=== PATIENT | male | born 1945 | race Two or more races ===

== ENCOUNTER 2018-01-03 06:54 | Day surgery (SDC) | payer OTHER ==
[~2018-01-03] VITALS: Ht 172.7 cm; Wt 111.1 kg
[~2018-01-03 06:54] MED LIST: ASPI81TA27 PO; ATOR20TA50 PO; HYDR-531 PO; LORA-622 PO; LOSA25TA9 PO; TERA1CAP33 PO; TRAZ50TA2 PO
[2018-01-03] MEDS ORDERED: LIDOCAINE 2%HCL (LOCAL ANESTH.) INJ 20ML MDV ONE (07:06)
[2018-01-03] MEDS ORDERED: IODIXANOL 320MG/ML 100ML BTL IV ONE (07:06)
[2018-01-03] MEDS ORDERED: ANGIOMAX 250 MG VIAL IV ONE (08:00)
[2018-01-03] MEDS ORDERED: VERAPAMIL 2.5MG/ML INJ 2ML VIAL IV ONE (08:00)
[2018-01-03] MEDS ORDERED: MIDAZOLAM HCL 1MG/1ML-2 ML VIAL ONE (08:00)
[2018-01-03] MEDS ORDERED: fentaNYL CITRATE 100 MCG/2 ML VL ONE (08:00)
[2018-01-03] MEDS ORDERED: SODIUM CHL 0.9% 0 ML ONE (08:00)
[2018-01-03] MEDS ORDERED: IOHEXOL 350 MG/ML 100ML IJ ONE (08:13)
[2018-01-03] MEDS ORDERED: HEPARIN 1,000 UNITS/ml 1ML VIAL ONE (08:37)
== END 2018-01-03 10:40 | disposition home or self-care (01) ==
LOC: CATH 06:54
PROVIDERS: ATTEND Internal Medicine
DX: I20.0 Unstable angina (principal); I25.9 Chronic ischemic heart disease, unspecified; E66.9 Obesity, unspecified; Z68.37 Body mass index [BMI] 37.0-37.9, adult; I10 Essential (primary) hypertension; E78.5 Hyperlipidemia, unspecified; J43.9 Emphysema, unspecified
CPT/HCPCS: 93005; 93458; C1769; C1894; J1644; J2250; J3010; J7030; Q9967; 99152

== ENCOUNTER → 2018-09-11 | Day surgery (SDC) | payer OTHER ==
[~2018-09-11] VITALS: Ht 172.7 cm; Wt 106.6 kg
[~2018-09-11] MED LIST changes: -ASPI81TA27 PO; -ATOR20TA50 PO; +FLUMAZENIL 0.1 MG/ML INJ 10ML MDV IV ONE; +LIDOCAINE VISCOUS 2% 15ML UD PO ONE; +LOSA25TA40 PO; -LOSA25TA9 PO; +MIDAZOLAM HCL 1MG/1ML-2 ML VIAL ONE; +MIDAZOLAM HCL 5 MG/ML-1ML VIAL IV ONE; +NALOXONE HCL 0.4 MG/ML VIAL IV ONE; +RIVA20TA PO; +TERA10CA36 PO; -TERA1CAP33 PO; +TERA2CAP45 PO; -TRAZ50TA2 PO; +fentaNYL CITRATE 100 MCG/2 ML VL IV ONE
== END | disposition home or self-care (01) ==
LOC: CATH 07:09
PROVIDERS: ATTEND Internal Medicine
DX: I48.91 Unspecified atrial fibrillation (principal); Z53.8 Procedure and treatment not carried out for other reasons; R06.02 Shortness of breath; I10 Essential (primary) hypertension; E78.5 Hyperlipidemia, unspecified; I73.9 Peripheral vascular disease, unspecified; J45.909 Unspecified asthma, uncomplicated; F10.99 Alcohol use, unspecified with unspecified alcohol-induced disorder; I70.90 Unspecified atherosclerosis; E66.9 Obesity, unspecified; I25.10 Atherosclerotic heart disease of native coronary artery without angina pectoris; Z82.49 Family history of ischemic heart disease and other diseases of the circulatory system; Z79.899 Other long term (current) drug therapy; Z68.36 Body mass index [BMI] 36.0-36.9, adult
CPT/HCPCS: J2250; J3010; J7030

== ENCOUNTER 2020-05-12 06:42 | Inpatient (IN) | payer OTHER ==
[~2020-05-12] VITALS: Ht 172.7 cm; Wt 99.8 kg
[~2020-05-12 06:42] MED LIST changes: -FLUMAZENIL 0.1 MG/ML INJ 10ML MDV IV ONE; -LIDOCAINE VISCOUS 2% 15ML UD PO ONE; +LOSA25TA38 PO; -LOSA25TA40 PO; -MIDAZOLAM HCL 1MG/1ML-2 ML VIAL ONE; -MIDAZOLAM HCL 5 MG/ML-1ML VIAL IV ONE; -NALOXONE HCL 0.4 MG/ML VIAL IV ONE; -fentaNYL CITRATE 100 MCG/2 ML VL IV ONE
[2020-05-12] MEDS ORDERED: FUROSEMIDE 40 MG/4 ML VIAL IV ONE (07:30)
[2020-05-12 08:32] LABS: Basophils # (auto) 0 10 ^3/uL (0-0.2); Basophils % (auto) 0.5 % (0.0-2.0); Eosinophils # (auto) 0.3 10 ^3/uL (0-0.8); Eosinophils % (auto) 5.3 % (0.0-7.0); Hematocrit 41.5 % (41.0-53.0); Hemoglobin 14.1 g/dL (13.5-17.5); Lymphocytes # (auto) 1.2 10 ^3/uL (0.4-5.4); Lymphocytes % (auto) 21.7 % (10.0-50.0); Mean Corpuscular Hemoglobin 31.9 pg (28.0-32.0); Mean Corpuscular Hgb Conc. 34.1 g/dL (32.0-36.0); Mean Corpuscular Volume 93.5 fL (80.0-100.0); Monocytes # (auto) 0.5 10 ^3/uL (0-1.3); Monocytes % (auto) 9.4 % (0.0-12.0); Neutrophils # (auto) 3.5 10 ^3/uL (1.6-8.6); Neutrophils % (auto) 63.1 % (37.0-80.0); Platelet Count (auto) 150 10^3/uL (140-450); Red Blood Cells 4.44 10^6/uL (4.5-5.90); Red Cell Distribution Width 14.2 % (11.8-14.3); White Blood Cell 5.5 10^3/uL (4.4-10.8)
[2020-05-12] MEDS ORDERED: AZITHROMYCIN 500MG/ 250ML 250 ML IV ONE (08:45)
[2020-05-12] MEDS ORDERED: cefTRIAXone 1GM/50ML D5W 50 ML IV ONE (08:45)
[2020-05-12 08:57] LABS: Chloride 107 mmol/L (98-107); Potassium 3.6 mmol/L (3.5-5.1); Sodium 140 mmol/L (136-145)
[2020-05-12 09:06] LABS: Alanine Aminotransferase 19 U/L (16-61); Albumin 3.4 g/dL (3.4-5.0); Alkaline Phosphatase 94 U/L (45-117); Anion Gap 5 (5-15); Aspartate Aminotransferase 15 U/L (15-37); Blood Urea Nitrogen 13 mg/dL (7-18); Calcium 8.5 mg/dL (8.5-10.1); Carbon Dioxide 28 mmol/L (21-32); GFR African American 86 mL/min; GFR Non-African American 71 mL/min; Glucose 116 mg/dL (74-106); Total Protein 6.9 g/dL (6.4-8.2)
[2020-05-12 09:39] LABS: Urine WBC None Seen /hpf (0 - 3)
[2020-05-12 09:48] LABS: Urine Bacteria NONE SEEN /hpf (None Seen); Urine Blood Negative /uL (Negative); Urine Specific Gravity 1.006 (1.001-1.035)
[2020-05-12] MEDS ORDERED: METOPROLOL TARTRATE 1MG/1ML-5ML VIAL IV ONE (10:30)
[2020-05-12] MEDS ORDERED: symbicort (14:48)
[2020-05-12] MEDS ORDERED: ASPI81CH43 PO (14:49)
[2020-05-12] MEDS ORDERED: PRAV20TA3 PO (14:49)
[2020-05-12] MEDS ORDERED: MORPHINE SULF INJ 2 MG/ML SYRINGE 1ML IV PRN (16:15)
[2020-05-12] MEDS ORDERED: ASPirin 81 mg TAB PO ONE (16:30)
[2020-05-12] MEDS ORDERED: TERAZOSIN HCL 5 MG CAP PO ONE (16:30)
[2020-05-12] MEDS ORDERED: HYDROcodone-ACET 5/325MG TAB PO PRN (18:00)
[2020-05-12] MEDS ORDERED: ACETAMINOPHEN 325 MG TAB PO PRN (18:00)
[2020-05-12] MEDS ORDERED: TRAZ100T3 PO (18:27)
[2020-05-12] MEDS ORDERED: LOSA100T25 PO (18:28)
[2020-05-12] MEDS ORDERED: BUDE1AER4 IN (18:29)
[2020-05-12] MEDS: FUROSEMIDE 40 MG/4 ML VIAL IV SCH (18:47)
[2020-05-12] MEDS: LEVALBUTEROL HCL 1.25 MG/3 ML NEB NEB SCH ×2 (19:23→23:47)
[2020-05-12] MEDS: POTASSIUM CHL 20 Meq TABLET PO SCH (21:48)
[2020-05-12] MEDS: DOXYCYCLINE 100 MG TAB/CAP PO SCH (21:48)
[2020-05-12] MEDS: PRAVASTATIN SODIUM 20 MG TAB PO SCH (21:48)
[2020-05-13] VITALS (7 sets, daily range): BP systolic 103–130; BP diastolic 47–83
[2020-05-13] MEDS ORDERED: FUROSEMIDE 40 MG/4 ML VIAL ONE (06:24)
[2020-05-13] MEDS: FUROSEMIDE 40 MG/4 ML VIAL IV SCH ×2 (06:34→17:45)
[2020-05-13] MEDS: LEVALBUTEROL HCL 1.25 MG/3 ML NEB NEB SCH ×4 (06:35→20:06)
[2020-05-13] MEDS ORDERED: ASPirin 81 mg TAB PO SCH (10:00)
[2020-05-13] MEDS ORDERED: POTASSIUM CHL 20 Meq TABLET PO ONE (10:16)
[2020-05-13] MEDS ORDERED: DOXYCYCLINE 100 MG TAB/CAP ONE (10:18)
[2020-05-13] MEDS: POTASSIUM CHL 20 Meq TABLET PO SCH ×2 (10:25→22:00)
[2020-05-13] MEDS: DOXYCYCLINE 100 MG TAB/CAP PO SCH ×2 (10:25→22:00)
[2020-05-13] MEDS ORDERED: IOHEXOL 350 MG/ML 100ML IJ ONE (11:44)
--- NOTE | 2020-05-13 12:37 | NUR ---
1145- Recieved pt from ED. Connected pt to pulse ox, bp, and library monitor. 2lpm on nc. VSS, no distress noted, no N/V. PT in stable condition. Will continue to monitor. 1220- PT off unit for CT procedure. VSS. No distress. 1228- PT returns from CT procedure. VSS. No distress.
--- NOTE | 2020-05-13 16:33 | NUR ---
8059-ASSUMMED CARE OF PT. RECIEVED REPORT FROM EMERSON QUIÑONEZ. VSS NO N/V NO DISTRESS NOTED. PT RESTING COMFORTABLY AT THIS TIME. WILL CONTINUE TO MONITOR.
[2020-05-13] MEDS ORDERED: TERAZOSIN HCL 5 MG CAP PO SCH (18:00)
--- NOTE | 2020-05-13 18:53 | NUR ---
Telemetry admit from ER Patient admitted to Telemetry unit. Patient oriented to primary RN, unit, room, bed, and unit policies regarding patient care and visiting hours. Patient now on continuous telemetry monitoring, tele box #36 and telemetry reading on arrival to unit is sinus tachycardia 100-110, no s/s of distress or SOB at this time. Patient weighed by bedscale and encouraged to call if they need something. All questions and concerns addressed, patient verbalized understanding. Safety precautions maintained bed is in lowest position and locked, bed rails 2x. Call light and bedside table are within reach.
[2020-05-13] MEDS ORDERED: POTA-220 PO (19:48)
[2020-05-13] MEDS ORDERED: FURO1TAB31 PO (19:48)
[2020-05-13] MEDS ORDERED: DOXY-346 PO (19:49)
--- NOTE | 2020-05-13 20:59 | NUR ---
Spoke with Dr.L. Pacheco Per MD, patient to be discharged once order for cardio clearance is obtained.
--- NOTE | 2020-05-13 21:06 | NUR ---
Per MD orders paged Dr. Price to obtain cardiac clearance. Awaiting call back.
--- NOTE | 2020-05-13 21:19 | NUR ---
Received call back from Dr. Price. Per Dr. Price, cardiac clearance received, patient ok to be discharged home.
[2020-05-13] MEDS: PRAVASTATIN SODIUM 20 MG TAB PO SCH (22:14)
--- NOTE | 2020-05-13 23:50 | NUR ---
Patient discharged IV removal IV DC'd with sterile technique, catheter fully intact. Pressure dressing applied to site. Patient tolerated procedure well. Telemetry box sent to ICU. Patient taken down to be picked up via motor vehicle, at this time patient has no s/s of distress or SOB. Discharged with aftercare instructions per MD.
[2020-05-14] MEDS ORDERED: LEVALBUTEROL HCL 1.25 MG/3 ML NEB ONE (00:01)
== END 2020-05-13 23:55 | disposition home or self-care (01) | DRG 177 ==
LOC: ER 06:42 → TELE 06:43 → ER 13:31 → TELE-CENTR 05-13 19:49
PROVIDERS: ADMIT Internal Medicine; ATTEND Internal Medicine
DX: J15.6 Pneumonia due to other Gram-negative bacteria (principal); I50.43 Acute on chronic combined systolic (congestive) and diastolic (congestive) heart failure; Z68.41 Body mass index [BMI] 40.0-44.9, adult; I11.0 Hypertensive heart disease with heart failure; E66.9 Obesity, unspecified; E78.5 Hyperlipidemia, unspecified; I48.91 Unspecified atrial fibrillation; Z90.49 Acquired absence of other specified parts of digestive tract; Z20.828 Contact with and (suspected) exposure to other viral communicable diseases
CPT/HCPCS: 36415; 71046; 71275; 80053; 81001; 83605; 83880; 84484; 85025; 85379; 87040; 93005; 93306; 93970; 94640; 99291; G0378; J0696